=== PATIENT | male | born 1990 ===

== ENCOUNTER → 2023-05-04 12:35 | Outpatient (CLI) | payer BC, SELFPAY ==
--- NOTE | ~2023-05-04 | XR_ITS ---
EXAMINATION: XR lumbar spine 2-3V DATE: 05/04/2023 12:59 INDICATION: Low back pain TECHNIQUE: Anteroposterior and lateral views of the lumbar spine, and cone-down lateral view of the l umbosacral junction were obtained. COMPARISON: None. FINDINGS: Bone alignment is normal. There is no fracture. There is mild loss of intervertebral disc s pace height at L5-S1. The vertebral body heights are maintained. A moderate volume of colonic stool i s present. IMPRESSION: 1. Mild lumbar spondylosis at L5-S1. Reviewed, dictated and finalized at location [facility]. [facility]
== END ==
PROVIDERS: PCP Nurse Practitioner Family; Visit Provider Nurse Practitioner Family
DX: M54.50 Low back pain, unspecified (principal); M43.06 Spondylolysis, lumbar region
CPT/HCPCS: 72100

== ENCOUNTER 2023-08-10 11:30 | Outpatient (RCR) | payer BC, SELFPAY ==
--- NOTE | 2023-06-08 13:35 | OPREHPOC ---
Outpatient Therapy Plan of Care This is a Multidisciplinary Plan of Care that may contain components documented by all disciplines (PT, OT, and ST.) PT Problem 1 PT Problem #1 Knowledge Deficit PT Goal 1 Goal 1* indep with HEP PT Problem 2 PT Problem #2 Pain PT Goal 1 Goal 1* pain rating at worst of 4/10 2* radicular pain to L mid thigh at worst 3* self assessment Oswestry score of 8% limitation in activity level PT Problem 3 PT Problem #3 Impaired Strength PT Goal 1 Goal increase strength of hips and trunk for stability to spine: 1* pt perform sitting ball exercises x 15 reps with good stability 2* pt demonstrate correct lifting waist/floor with bilateral UE, 20# box x 3 reps 3* in prone- R/L sacrum level
--- NOTE | 2023-06-08 13:35 | PTOPEVAL1 ---
Assessment and note entered by Diana Madera, PT Evaluation Information Assessment Status Evaluation Diagnosis low back pain and sciatica L Onset November 2022 Subjective Information in November picked up a package that was delivered at his home, not that heavy, but awkward; felt little back pain, sat in car and drove to work, then when got out of car--more pain in back; was really bad pain for 2 weeks then less, but about the same; can do everything that need to do but more pain and have to modify how do things Activity: work car sales, sitting, phone calls, walking though dept Reported Pain Level Pain Score Self Report Additional Pain Score Comments pain range in the past week: 3-8/10; R and L lumbar, intermittent, 80% radicular L LE to lateral mid-la; increase pain: sitting too long- varies 30-60 min bending forward, moving hips too much, more active decrease pain: change positions, stretch hip, lie on stomach; was taking meloxicam and cyclobenzaprine--not taken recently, did OK without it, not like taking pain meds regularly used heat initially, not really help much; tried ice few time--not help Oswestry self assessment 18% limitation in activity sleeping OK--tends to sleep on sides or supine Assessment PT Clinical Summary Norris has the diagnosis of LBP, radicular into L LE to mid la. Onset in November with picking up an awkward size package from the porch. Xray report states mild L5-S1 spondylosis. Since onset, pain is less, but still present. He is able to do all his home and work tasks, but more cautious with movements and sitting too long bothers him. Self assessment Oswestry score of 18% limitation in activity level. With the evaluation, he has good flexibility of trunk and hips, with the only motions that elicited pain was supine L SLR and supine bridge; in prone, he has slight p
--- NOTE | 2023-06-08 15:27 | PCPTNOTE ---
during evaluation appt, pt stated he will be out of town from Jun 28 to ;
--- NOTE | 2023-08-03 10:22 | PCPTNOTE ---
Patient got the time wrong for his appointment scheduled 08/03/23, rescheduled visit to next week.
--- NOTE | 2023-08-10 11:57 | OPREHPOC ---
Outpatient Therapy Plan of Care This is a Multidisciplinary Plan of Care that may contain components documented by all disciplines (PT, OT, and ST.) PT Problem 1 PT Problem #1 Knowledge Deficit PT Goal 1 Goal 1* indep with HEP Progress Met PT Problem 2 PT Problem #2 Pain PT Goal 1 Goal 1* pain rating at worst of 4/10 2* radicular pain to L mid thigh at worst 3* self assessment Oswestry score of 8% limitation in activity level Progress Not Met PT Problem 3 PT Problem #3 Impaired Strength PT Goal 1 Goal increase strength of hips and trunk for stability to spine: 1* pt perform sitting ball exercises x 15 reps with good stability 2* pt demonstrate correct lifting waist/floor with bilateral UE, 20# box x 3 reps 3* in prone- R/L sacrum level Comment not assessed
--- NOTE | 2023-08-10 11:57 | PTOPPROGNS ---
Assessment and note entered by Hali Zhu DPT Evaluation Information Assessment Status Progress Diagnosis low back pain and sciatica L Onset November 2022 Subjective Information Highest pain recently 7/10 and lowest 0/10 but still has tingling almost all the time. Walking long distances and prolonged standing seem to increase pain, sometimes it is triggered by random things. Is able to do all his activities but does have pain. No return to MD scheduled currently. Assessment PT Clinical Summary The patient has attended 6 sessions of therapy so far and has made some progress. He demonstrates highest pain is still 7/10, lowest is 0/10 and continues to have tingling in his L LE almost all of the time. He does demonstrate some improved LE strength and balance and no tenderness to palpation this visit. Due to his limited progress and continued high pain at times, plan to hold therapy for patient to follow up with MD. Will continue as needed based on follow up visit. Plan of Care Interventions PT Services Indicated No Treatment Frequency and hold therapy pending follow up with MD Duration These treatments will address the objective and functional deficits as defined above. The patient will be advanced safely and appropriately in order for the patient to progress towards his/her prior level of function. Additional exercises will be introduced and as well as a comprehensive home exercise program upon discharge, if needed, ?to ensure carryover of functional gains achieved in the clinic. This treatment plan has been reviewed and agreement upon by the patient.
--- NOTE | 2023-11-10 08:44 | PCPTNOTE ---
PHYSICAL THERAPY DISCHARGE Norris did not return for any further treatment since the progress report dated August 09. Discharge PT.
== END 2023-09-06 23:59 | disposition home or self-care (01) ==
LOC: ANHPT 11:30
PROVIDERS: PCP Nurse Practitioner Family; Visit Provider Nurse Practitioner Family
DX: M54.42 Lumbago with sciatica, left side (principal)
CPT/HCPCS: 97012; 97014; 97110; 97112; 97140; 97161; 97530; G0283